=== PATIENT | female | born 1985 | race Caucasian/White ===

== ENCOUNTER → 2020-07-15 | Outpatient (REF) | payer OTHER ==
[2020-07-15 12:55] LABS: BASO # 0.1 10^3/uL (0.0-0.2); BASO % 0.9 % (0.0-1.0); EOS # 0.3 10^3/uL (0.0-0.5); EOS % 3.2 % (0.0-3.0); HEMATOCRIT 45.4 % (36.0-47.0); LYMPH # 1.8 10^3/uL (1.5-5.0); LYMPH % 22.5 % (24.0-44.0); MEAN CORPUSCULAR HEMOGLOBIN 29.5 pg (27.0-33.0); MEAN CORPUSCULAR VOLUME 89.2 fl (80.0-96.0); MONO # 0.7 10^3/uL (0.0-0.8); MONO % 8.6 % (2.0-8.0); NEUTROPHILS # 5.1 10^3/uL (1.5-8.5); NEUTROPHILS % 64.4 % (36.0-66.0); PLATELET COUNT, AUTOMATED 305 10^3/uL (150-450); RED BLOOD COUNT 5.09 10^6/uL (4.00-5.40); WHITE BLOOD COUNT 7.9 10^3/uL (4.0-10.0)
[2020-07-15 13:00] LABS: APPEARANCE, URINE HAZY (CLEAR); BACTERIA, URINE AUTO NEGATIVE (NEGATIVE); BILIRUBIN, URINE AUTO NEGATIVE (NEGATIVE); BLOOD, URINE BLOOD 2+ (NEGATIVE); COLOR, URINE YELLOW (YELLOW); GLUCOSE, URINE (UA) AUTO NEGATIVE (NEGATIVE); KETONE, URINE AUTO NEGATIVE (NEGATIVE); LEUKOCYTE ESTERASE, URINE AUTO TRACE (NEGATIVE); MUCUS, URINE SMALL (NEGATIVE); NITRITE, URINE AUTO NEGATIVE (NEGATIVE); PROTEIN, URINE AUTO NEGATIVE (NEGATIVE); RBC, URINE AUTO 10 /HPF (0-3); SQUAMOUS EPITHELIAL CELL UR AU 5 /HPF (0-6); UROBILINOGEN, URINE AUTO 0.2 mg/dL (0.0-2.0); WBC, URINE AUTO 3 /HPF (0-3)
[2020-07-15 13:15] LABS: TOTAL PROTEIN,RANDOM URINE 21.3 MG/DL (0.0-12.0)
[2020-07-15 13:22] LABS: MAGNESIUM LEVEL 2.2 MG/DL (1.8-2.4); PHOSPHORUS LEVEL 3.6 MG/DL (2.5-4.9)
[2020-07-15 13:27] LABS: TOTAL 25(OH) VITAMIN D 22.5 NG/ML (30.0-100.0)
[2020-07-17 11:35] LABS: DRVV SCREEN 43.3 SEC
[2020-07-17 11:40] LABS: PTT LUPUS TYPE ANTICOAG SCREEN 1.1 (0-1.2)
[2020-07-18 14:09] LABS: ANA (HEP2) Negative (.); ANTI CENTROMERE ANTIBODY <0.2 AI (0.0-0.9); ANTI DS-DNA AB Negative (Negative); ANTI SCLERODERMA ANTIBODIES <0.2 AI (0.0-0.9); ANTI SMITH(Sm) AB <20 Units (<20); ANTI-HISTONE ANTIBODIES 1.7 Units (0.0-0.9); ANTI-U1 RNP AB <20 Units (<20); BETA-2 GLYCOPROTEIN I ABY IGA <9 (0-25); BETA-2 GLYCOPROTEIN I ABY IGG <9 (0-20); BETA-2 GLYCOPROTEIN I ABY IGM <9 (0-32); CARDIOLIPIN IGA ANTIBODY <9 APL U/mL (0-11); CARDIOLIPIN IGG ANTIBODY <9 GPL U/mL (0-14); CARDIOLIPIN IGM ANTIBODY 14 MPL U/mL (0-12); COMPLEMENT TOTAL (CH50) > 60 U/mL (>41); SSA SJOGRENS A 2.4 AI (0.0-0.9); SSB SJOGRENS B 0.5 AI (0.0-0.9)
== END ==
LOC: M SFHCRHEU 10:05
PROVIDERS: ATTEND Internal Medicine
DX: R76.8 Other specified abnormal immunological findings in serum (principal); R53.82 Chronic fatigue, unspecified
CPT/HCPCS: 81001; 82306; 82570; 82607; 83520; 83540; 83735; 84100; 84156; 85025; 85730; 86038; 86146; 86147; 86160; 86162; 86225; 86235; 86255; G0463

== ENCOUNTER → 2020-08-09 | Outpatient (REF) | payer OTHER ==
[2020-08-09 12:34] LABS: AMORPHOUS SEDIMENT SMALL (NEGATIVE); APPEARANCE, URINE CLEAR (CLEAR); BACTERIA, URINE AUTO NEGATIVE (NEGATIVE); BILIRUBIN, URINE AUTO NEGATIVE (NEGATIVE); BLOOD, URINE BLOOD 2+ (NEGATIVE); COLOR, URINE STRAW (YELLOW); GLUCOSE, URINE (UA) AUTO NEGATIVE (NEGATIVE); KETONE, URINE AUTO NEGATIVE (NEGATIVE); LEUKOCYTE ESTERASE, URINE AUTO NEGATIVE (NEGATIVE); NITRITE, URINE AUTO NEGATIVE (NEGATIVE); PROTEIN, URINE AUTO NEGATIVE (NEGATIVE); RBC, URINE AUTO 3 /HPF (0-3); SPECIFIC GRAVITY URINE AUTO 1.009 (1.002-1.035); SQUAMOUS EPITHELIAL CELL UR AU 0 /HPF (0-6); UROBILINOGEN, URINE AUTO 0.2 mg/dL (0.0-2.0); WBC, URINE AUTO 0 /HPF (0-3)
[2020-08-16 01:06] LABS: ANTI JO-1 ANTIBODIES <20 Units (<20); ANTI-HISTONE ANTIBODIES 1.7 Units (0.0-0.9); SSA SJOGRENS A 2.5 AI (0.0-0.9); SSB SJOGRENS B 0.5 AI (0.0-0.9)
== END ==
LOC: M SFHCRHEU 10:37
PROVIDERS: ATTEND Internal Medicine
DX: R31.9 Hematuria, unspecified (principal); H04.129 Dry eye syndrome of unspecified lacrimal gland; R76.8 Other specified abnormal immunological findings in serum
CPT/HCPCS: 81001; 83520; 86235; G0463

== ENCOUNTER → 2020-10-24 | Outpatient (REF) | payer OTHER | LOC: M SFHCRHEU 14:00 | PROVIDERS: ATTEND Internal Medicine | DX: R53.82 Chronic fatigue, unspecified (principal) ==

== ENCOUNTER → 2021-03-18 | Outpatient (REF) | payer OTHER | LOC: M LAB REF 16:56 | PROVIDERS: ATTEND Nurse Practitioner Family | DX: R30.9 Painful micturition, unspecified (principal) ==

== ENCOUNTER → 2021-03-25 | Outpatient (REF) | payer OTHER ==
[2021-03-25 13:43] LABS: APPEARANCE, URINE CLEAR (CLEAR); BACTERIA, URINE AUTO NEGATIVE (NEGATIVE); BILIRUBIN, URINE AUTO NEGATIVE (NEGATIVE); BLOOD, URINE BLOOD 2+ (NEGATIVE); COLOR, URINE YELLOW (YELLOW); GLUCOSE, URINE (UA) AUTO NEGATIVE (NEGATIVE); KETONE, URINE AUTO TRACE mg/dL (NEGATIVE); LEUKOCYTE ESTERASE, URINE AUTO NEGATIVE (NEGATIVE); MUCUS, URINE SMALL (NEGATIVE); NITRITE, URINE AUTO NEGATIVE (NEGATIVE); PROTEIN, URINE AUTO NEGATIVE (NEGATIVE); RBC, URINE AUTO 6 /HPF (0-3); SQUAMOUS EPITHELIAL CELL UR AU 1 /HPF (0-6); UROBILINOGEN, URINE AUTO 0.2 mg/dL (0.0-2.0); WBC, URINE AUTO 2 /HPF (0-3)
== END ==
LOC: M SMT 12:58
PROVIDERS: ATTEND Urology
DX: R31.9 Hematuria, unspecified (principal)

== ENCOUNTER → 2021-04-02 | Outpatient (CLI) | payer OTHER | LOC: M RAD 12:56 | PROVIDERS: ATTEND Urology | DX: R31.9 Hematuria, unspecified (principal) ==